=== PATIENT | female | born 1985 | race Two or more races ===

== ENCOUNTER 2019-09-16 21:13 | Emergency (ER) | payer SELFPAY ==
[~2019-09-16] VITALS: Ht 170.2 cm; Wt 72.6 kg
[2019-09-16 23:12] VITALS: BP 111/75
[2019-09-16] MEDS ORDERED: DexAMETHasone SOD PHOS 10MG/1ML VIAL INJ IM ONE (23:15)
[2019-09-16] MEDS ORDERED: cefTRIAXone SOD 1,000 MG VL IM ONE (23:15)
== END 2019-09-16 23:42 | disposition home or self-care (01) ==
LOC: ER 21:16
DX: O23.41 Unspecified infection of urinary tract in pregnancy, first trimester (principal); O26.891 Other specified pregnancy related conditions, first trimester; J06.9 Acute upper respiratory infection, unspecified; Z3A.08 8 weeks gestation of pregnancy
CPT/HCPCS: 96372; 99283; J0696; J1100

== ENCOUNTER 2023-03-06 01:41 | Emergency (ER) | payer BC, MEDICAID ==
[~2023-03-06] VITALS: Ht 170.2 cm; Wt 100.0 kg
[2023-03-06 01:49] VITALS: BP 130/88
[2023-03-06 02:04] LABS: Basophils # (auto) 0.1 10 ^3/uL (0-0.2); Basophils % (auto) 0.7 % (0.0-2.0); Eosinophils # (auto) 0.4 10 ^3/uL (0-0.8); Eosinophils % (auto) 3.2 % (0.0-7.0); Hematocrit 39.3 % (36.0-46.0); Hemoglobin 13.2 g/dL (12.2-16.2); Lymphocytes # (auto) 5.9 10 ^3/uL (0.4-5.4); Lymphocytes % (auto) 48.2 % (10.0-50.0); Mean Corpuscular Hemoglobin 28.1 pg (28.0-32.0); Mean Corpuscular Hgb Conc. 33.6 g/dL (32.0-36.0); Mean Corpuscular Volume 83.6 fL (80.0-100.0); Monocytes # (auto) 0.7 10 ^3/uL (0-1.3); Neutrophils # (auto) 5.1 10 ^3/uL (1.6-8.6); Neutrophils % (auto) 41.9 % (37.0-80.0); Red Blood Cells 4.71 10^6/uL (4.0-5.20); Red Cell Distribution Width 14.6 % (11.8-14.3); White Blood Cell 12.3 10^3/uL (4.4-10.8)
[2023-03-06 02:17] LABS: Albumin 3.4 g/dL (3.4-5.0); BUN/Creatinine Ratio 15.5 (10.0-20.0); Calcium 8.4 mg/dL (8.5-10.1); Potassium 3.7 mmol/L (3.5-5.1)
[2023-03-06 02:20] LABS: Bilirubin, Total 0.3 mg/dL (0.2-1.0)
== END 2023-03-06 03:08 | disposition left against medical advice (07) ==
LOC: ER 01:41
DX: R07.89 Other chest pain (principal)
CPT/HCPCS: 36415; 71045; 80053; 84484; 85025; 93005